=== PATIENT | male | born 1960 | race Caucasian/White ===

== ENCOUNTER 2020-04-23 07:55 | Day surgery (SDC) | payer OTHER ==
[~2020-04-23 07:55] MED LIST: DAILY MULTIPLE1 EACH PO; FISH OIL 1,2001 EACH PO; GLUCOSAMINE CH1 EAC7 PO; HM CALCIUM-MAG1 EACH PO; PAXIL20 MG PO; SIMVASTATIN20 MG PO; TYLENOL325 MG PO
--- NOTE | 2020-04-23 09:19 | NUR ---
04/23/20 0919 Analia Richardson 0915 PATIENT ARRIVES TO PACU AWAKE BUT DROWSY. RESP EVEN AND UNLABORED, OXYMASK OFF. DESATS TO 90% ON ROOM AIR. NASAL CANULA ON AT 3 LITERS.
--- NOTE | 2020-04-23 10:20 | OR ---
[facility] [address] [place], [place] [address] Signed DATE OF OPERATION: 04/23/2020 SURGEON: Nichol Caputo MD PREOPERATIVE DIAGNOSIS: Screening. POSTOPERATIVE DIAGNOSIS: Unremarkable colonoscopy. PROCEDURE: Colonoscopy without biopsy. ESTIMATED BLOOD LOSS: None. INDICATIONS: Robin is a 60-year-old gentleman asked to see me for his colonoscopy. He has no lower GI complaints. There is no family history of colon cancer or polyps. I did help his with a colonoscopy several years ago. Consequently, Robin and his were familiar with this process. He understands there is risk including, but not limited to gas bloating, crampy abdominal pain, bleeding, perforation requiring surgery, and missed diagnosis. He also recalls the need for IV conscious sedation. He had expressed understanding and wished to proceed. PROCEDURE NOTE: Robin was taken into our endoscopy suite and placed in the left lateral decubitus position. He was given IV sedation with 10 mg of Versed and 150 mcg of fentanyl. He has a body mass index of 43 and has a very full face, heavy neck. Consequently, he is close to needing monitored anesthesia care. A digital rectal exam was performed and this was unremarkable. Difficult to assess the full prostate because of the size of his body. The adult colonoscope had been introduced and advanced all around into the cecum under direct visualization of camera. It took some extra sedation and abdominal compression in order to advance the scope. He had some areas of liquid particulate stool matter. Fortunately, we were able to suction . In the end, we could see the appendiceal orifice and ileocecal valve. The scope was then slowly withdrawn. We saw no pathology throughout the entire colon or rectum. Upon retroflexion of scope, there was no additional pathology noted above the anal canal. After this, the gas was suctioned out and colonoscope removed. Robin tolerated the procedure quite well. Electronically Signed By: NICHOL CAPUTO MD 04/23/20 1020 PATIENT NAME: ROBIN MAYORGA OPERATIVE REPORT DATE OF : 64 REPORT #: [id number] PHYSICIAN: NICHOL CAPUTO MD PCP: SHAILESH KELSEY MD REPORT IS CONFIDENTIAL AND NOT TO BE RELEASED WITHOUT AUTHORIZATION [address] [place], [place] [address] Signed RECOMMENDATIONS: Plan can return in 10 years for a repeat colonoscopy. He should strongly consider a double bowel prep. He might need monitored anesthesia care as he gets older. Nichol Caputo MD ALB/MODL /[id number] cc: MD Nichol Baez MD Copies: SHAILESH KELSEY MD, ANDREW L MD ~ Electronically Signed By: NICHOL CAPUTO MD 04/23/20 1020 PATIENT NAME: ROBIN MAYORGA OPERATIVE REPORT DATE OF : 64 REPORT #: [id number] PHYSICIAN: NICHOL CAPUTO MD PCP: SHAILESH KELSEY MD REPORT IS CONFIDENTIAL AND NOT TO BE RELEASED WITHOUT AUTHORIZATION
== END 2020-04-23 10:15 | disposition home or self-care (01) ==
LOC: DS 07:55 → OPS 07:55 → DS 09:00 → OPS 10:15 → DS 10:25
PROVIDERS: ATTEND Colon & Rectal Surgery
PROC: 0DJD8ZZ Inspection of Lower Intestinal Tract, Via Natural or Artificial Opening Endoscopic (ICD-10-PCS; principal; 2020-04-23 09:00)
DX: Z12.11 Encounter for screening for malignant neoplasm of colon (principal); K43.6 Other and unspecified ventral hernia with obstruction, without gangrene; M62.08 Separation of muscle (nontraumatic), other site; D48.5 Neoplasm of uncertain behavior of skin; E66.9 Obesity, unspecified; F41.8 Other specified anxiety disorders; Z88.8 Allergy status to other drugs, medicaments and biological substances; E78.5 Hyperlipidemia, unspecified; Z68.41 Body mass index [BMI] 40.0-44.9, adult; Z87.891 Personal history of nicotine dependence
CPT/HCPCS: 99153; G0500; J2250; J3010; J7121